=== PATIENT | male | born 1940 | race Caucasian/White ===

== ENCOUNTER 2019-10-03 14:29 | Inpatient (IN) | payer MEDICARE ==
[~2019-10-03] VITALS: Ht 180.3 cm; Wt 85.4 kg
[2019-10-03 16:35] VITALS: BP 100/50
[2019-10-03] MEDS ORDERED: BISACODYL 10 MG SUPP PR PRN (17:30)
[2019-10-03] MEDS ORDERED: morphine SULFATE 10 MG/ML, 1ML IVPush PRN (17:30)
[2019-10-03] MEDS ORDERED: ONDANSETRON 2MG/ML, 2ML IVPush PRN (17:30)
[2019-10-03] MEDS ORDERED: ACETAMINOPHEN 325 MG TABLET PO PRN (17:30)
[2019-10-03] MEDS ORDERED: DOCUSATE 100 MG CAPSULE PO PRN (17:30)
[2019-10-03] MEDS ORDERED: POLYETHYLENE GLYCOL 17 GM PACKET PO PRN (17:30)
[2019-10-03] MEDS ORDERED: NITROGLYCERIN/D5W PMX 250 ML ONE (17:39)
[2019-10-03] MEDS ORDERED: HEPARIN 25,000 UNITS/250ML PMX 250 ML ONE (17:40)
[2019-10-03] MEDS ORDERED: MORPHINE SULFATE 4 MG/ML, 1ML ONE (17:40)
[2019-10-03] MEDS ORDERED: morphine SULFATE 10 MG/ML, 1ML ONE (17:56)
[2019-10-03] MEDS ORDERED: PLEASE ENTER ALLERGIES MC SCH (18:00)
[2019-10-03] MEDS ORDERED: NITROGLYCERIN/D5W PMX 250 ML IV PRN (18:00)
[2019-10-03 18:01] LABS: BASOPHILS # (AUTO) 0.03 x10^3/uL (0-0.1); BASOPHILS % (AUTO) 0 % (0-1); EOSINOPHILS # (AUTO) 0.13 x10^3/uL (0-0.4); EOSINOPHILS % (AUTO) 1 % (1-7); LYMPHOCYTES # (AUTO) 0.72 x10^3/uL (1-3.4); LYMPHOCYTES % (AUTO) 7 % (22-44); MD NO; MEAN CORPUSCULAR HEMOGLOBIN 30.8 pg (27.5-34.5); MEAN CORPUSCULAR HGB CONC 33.8 g/dL (33.2-36.2); MEAN CORPUSCULAR VOLUME 91.1 fL (81-97); MONOCYTES # (AUTO) 0.61 x10^3/uL (0.2-0.8); MONOCYTES % (AUTO) 6 % (2-9); NEUTROPHILS # (AUTO) 8.55 x10^3/uL (1.8-6.8); NEUTROPHILS % (AUTO) 85 % (42-75); PLATELET COUNT 276 x10^3/uL (130-400); RED BLOOD COUNT 2.89 x10^6/uL (4.38-5.82); RED CELL DISTRIBUTION WIDTH 15.9 % (9.4-14.8)
[2019-10-03 18:11] LABS: INTERNATIONAL NORMALIZED RATIO 1.06 (0.93-1.1); PROTHROMBIN TIME 11.2 Seconds (9.6-11.5)
[2019-10-03 18:13] LABS: ALANINE AMINOTRANSFERASE 61 U/L (12-78); ALBUMIN 2.1 g/dL (3.4-5.0); ANION GAP 8 mmol/L (5-15); CALCIUM 8.6 mg/dL (8.5-10.1); CHLORIDE 99 mmol/L (98-107); CREATININE 0.42 mg/dL (0.7-1.3)
[2019-10-03 18:17] LABS: ALKALINE PHOSPHATASE 99 U/L (45-117); BILIRUBIN,TOTAL 0.3 mg/dL (0.2-1.0); TOTAL PROTEIN 5.7 g/dL (6.4-8.2)
[2019-10-03] MEDS ORDERED: HEPARIN 5,000 UNITS/ML, 1ML IV ONE ×2 (18:30→19:00)
[2019-10-03] MEDS ORDERED: HEPARIN 5,000 UNITS/ML, 1ML IV PRN (18:30)
[2019-10-03] MEDS ORDERED: HEPARIN 25,000 UNITS/250ML PMX 250 ML IV PRN (18:30)
[2019-10-03] MEDS ORDERED: HEPARIN 1,000 UNITS/ML, 10ML IV ONE (19:00)
[2019-10-03] MEDS: TICAGRELOR 90 MG TABLET PO SCH (21:54)
[2019-10-03] MEDS: TRAZODONE 100MG TABLET PO SCH (21:55)
[2019-10-03] MEDS: DOCUSATE 100 MG CAPSULE PO SCH (21:56)
[2019-10-03] MEDS: SODIUM CHLORIDE 0.9% 1,000 ML IV SCH (22:09)
[2019-10-04] VITALS (12 sets, daily range): BP systolic 87–99; BP diastolic 47–60
[2019-10-04] MEDS: PANTOPROZOLE 40MG TABLET PO SCH (05:23)
[2019-10-04 05:55] LABS: BASOPHILS # (AUTO) 0.04 x10^3/uL (0-0.1); BASOPHILS % (AUTO) 0 % (0-1); EOSINOPHILS # (AUTO) 0.25 x10^3/uL (0-0.4); EOSINOPHILS % (AUTO) 2 % (1-7); LYMPHOCYTES # (AUTO) 0.59 x10^3/uL (1-3.4); LYMPHOCYTES % (AUTO) 6 % (22-44); MD NO; MEAN CORPUSCULAR HEMOGLOBIN 31.1 pg (27.5-34.5); MEAN CORPUSCULAR VOLUME 91.7 fL (81-97); MEAN PLATELET VOLUME 6.8 fL (7.4-10.4); MONOCYTES # (AUTO) 0.69 x10^3/uL (0.2-0.8); MONOCYTES % (AUTO) 7 % (2-9); NEUTROPHILS # (AUTO) 8.95 x10^3/uL (1.8-6.8); NEUTROPHILS % (AUTO) 85 % (42-75); PLATELET COUNT 269 x10^3/uL (130-400); RED BLOOD COUNT 2.72 x10^6/uL (4.38-5.82); RED CELL DISTRIBUTION WIDTH 15.9 % (9.4-14.8)
[2019-10-04 06:10] LABS: ANION GAP 7 mmol/L (5-15); CALCIUM 8.4 mg/dL (8.5-10.1); CHLORIDE 100 mmol/L (98-107); TRIGLYCERIDES 66 mg/dL (50-200); VLDL CHOLESTEROL 13 mg/dL (0-25)
[2019-10-04 06:19] LABS: ALANINE AMINOTRANSFERASE 61 U/L (12-78); ALKALINE PHOSPHATASE 94 U/L (45-117); BILIRUBIN,TOTAL 0.3 mg/dL (0.2-1.0); CHOL/HDL RATIO 2.9; CHOLESTEROL, TOTAL 122 mg/dL (140-239); CREATININE 0.31 mg/dL (0.7-1.3); HDL CHOL % 34 % (26-37); HDL CHOLESTEROL (DIRECT) 42 mg/dL (40-60); LDL CHOLESTEROL,CALCULATED 67 mg/dL (54-169); TOTAL PROTEIN 5.5 g/dL (6.4-8.2)
[2019-10-04 06:20] LABS: LDL/HDL RATIO 1.6 (0.5-3.0)
[2019-10-04] MEDS ORDERED: LIDOCAINE 2%, 20ML ONE (08:34)
[2019-10-04] MEDS ORDERED: MIDAZOLAM 1 MG/ML, 5ML ONE ×2 (08:34→09:44)
[2019-10-04] MEDS ORDERED: FENTANYL PF 100 MCG/2ML ONE ×2 (08:34→09:44)
[2019-10-04] MEDS ORDERED: BIVALIRUDIN 250 MG ONE (08:34)
[2019-10-04] MEDS ORDERED: NITROGLYCERIN 5 MG/ML, 10ML ONE (08:34)
[2019-10-04] MEDS: DOCUSATE 100 MG CAPSULE PO SCH ×2 (08:37→21:13)
[2019-10-04] MEDS: ASPIRIN 81 MG TABLET EC PO SCH (08:50)
[2019-10-04] MEDS: TICAGRELOR 90 MG TABLET PO SCH ×2 (09:00→21:11)
[2019-10-04] MEDS ORDERED: TICAGRELOR 90 MG TABLET ONE (09:34)
[2019-10-04] MEDS ORDERED: PHENYLEPHRINE 10 MG/ML ONE (09:50)
[2019-10-04] MEDS ORDERED: SODIUM CHLORIDE 0.9% 1,000 ML IV SCH (10:56)
[2019-10-04] MEDS: SODIUM CHLORIDE 0.9% 1,000 ML IV SCH (11:07)
[2019-10-04 11:30] LABS: BASOPHILS # (AUTO) 0.03 x10^3/uL (0-0.1); BASOPHILS % (AUTO) 0 % (0-1); EOSINOPHILS # (AUTO) 0.15 x10^3/uL (0-0.4); EOSINOPHILS % (AUTO) 2 % (1-7); LYMPHOCYTES # (AUTO) 0.49 x10^3/uL (1-3.4); LYMPHOCYTES % (AUTO) 5 % (22-44); MD NO; MEAN CORPUSCULAR HEMOGLOBIN 30.5 pg (27.5-34.5); MEAN CORPUSCULAR HGB CONC 33.2 g/dL (33.2-36.2); MEAN CORPUSCULAR VOLUME 91.7 fL (81-97); MEAN PLATELET VOLUME 6.5 fL (7.4-10.4); MONOCYTES # (AUTO) 0.71 x10^3/uL (0.2-0.8); MONOCYTES % (AUTO) 7 % (2-9); NEUTROPHILS # (AUTO) 8.76 x10^3/uL (1.8-6.8); NEUTROPHILS % (AUTO) 86 % (42-75); PLATELET COUNT 305 x10^3/uL (130-400); RED BLOOD COUNT 2.79 x10^6/uL (4.38-5.82); RED CELL DISTRIBUTION WIDTH 16.3 % (9.4-14.8)
[2019-10-04] MEDS: CEFTRIAXONE PMX 2GM/50ML 50 ML IV SCH (11:50)
[2019-10-04 12:38] LABS: HCT (SEDRATE) 25.6 % (39.2-51.8)
[2019-10-04] MEDS ORDERED: METHOCARBAMOL 750 MG TABLET PO PRN (16:00)
[2019-10-04] MEDS: CARVEDILOL 3.125 MG TABLET PO SCH (21:00)
[2019-10-04] MEDS: ATORVASTATIN 80 MG TABLET PO SCH (21:12)
[2019-10-04] MEDS: TRAZODONE 100MG TABLET PO SCH (21:14)
[2019-10-05 04:49] VITALS: BP 89/52
[2019-10-05 05:32] LABS: BASOPHILS # (AUTO) 0.03 x10^3/uL (0-0.1); BASOPHILS % (AUTO) 0 % (0-1); EOSINOPHILS # (AUTO) 0.17 x10^3/uL (0-0.4); EOSINOPHILS % (AUTO) 2 % (1-7); LYMPHOCYTES # (AUTO) 0.69 x10^3/uL (1-3.4); LYMPHOCYTES % (AUTO) 7 % (22-44); MD NO; MEAN CORPUSCULAR HEMOGLOBIN 30.2 pg (27.5-34.5); MEAN CORPUSCULAR HGB CONC 33.1 g/dL (33.2-36.2); MEAN CORPUSCULAR VOLUME 91.2 fL (81-97); MEAN PLATELET VOLUME 6.4 fL (7.4-10.4); MONOCYTES # (AUTO) 0.72 x10^3/uL (0.2-0.8); MONOCYTES % (AUTO) 7 % (2-9); NEUTROPHILS # (AUTO) 8.49 x10^3/uL (1.8-6.8); NEUTROPHILS % (AUTO) 84 % (42-75); PLATELET COUNT 317 x10^3/uL (130-400); RED BLOOD COUNT 3.36 x10^6/uL (4.38-5.82); RED CELL DISTRIBUTION WIDTH 15.8 % (9.4-14.8)
[2019-10-05 05:41] LABS: ANION GAP 7 mmol/L (5-15); CHLORIDE 101 mmol/L (98-107)
[2019-10-05 05:43] LABS: CALCIUM 8.6 mg/dL (8.5-10.1); CREATININE 0.43 mg/dL (0.7-1.3)
[2019-10-05] MEDS: CARVEDILOL 3.125 MG TABLET PO SCH ×2 (06:00→17:35)
[2019-10-05] MEDS: PANTOPROZOLE 40MG TABLET PO SCH (06:01)
[2019-10-05] MEDS: ASPIRIN 81 MG TABLET EC PO SCH (06:02)
[2019-10-05] MEDS: DOCUSATE 100 MG CAPSULE PO SCH ×2 (08:27→20:31)
[2019-10-05] MEDS: TICAGRELOR 90 MG TABLET PO SCH ×2 (08:27→20:31)
[2019-10-05] MEDS: ACETYLCYSTEINE 600 MG CAPSULE PO SCH ×2 (08:27→20:31)
[2019-10-05] MEDS: CEFTRIAXONE PMX 2GM/50ML 50 ML IV SCH (08:30)
[2019-10-05] MEDS ORDERED: D5%-0.45NACL+KCL 20MEQ 1,000 ML IV SCH (09:30)
[2019-10-05 15:17] VITALS: BP 105/64
[2019-10-05 17:34] VITALS: BP 116/66
[2019-10-05 18:45] VITALS: BP 103/65
[2019-10-05 20:28] VITALS: BP 100/65
[2019-10-05] MEDS: ATORVASTATIN 80 MG TABLET PO SCH (20:31)
[2019-10-05] MEDS: TRAZODONE 100MG TABLET PO SCH (20:31)
[2019-10-06 01:23] VITALS: BP 93/57
[2019-10-06 05:28] LABS: CHLORIDE 103 mmol/L (98-107)
[2019-10-06 05:31] LABS: BASOPHILS # (AUTO) 0.01 x10^3/uL (0-0.1); BASOPHILS % (AUTO) 0 % (0-1); EOSINOPHILS # (AUTO) 0.22 x10^3/uL (0-0.4); EOSINOPHILS % (AUTO) 3 % (1-7); LYMPHOCYTES # (AUTO) 0.87 x10^3/uL (1-3.4); LYMPHOCYTES % (AUTO) 10 % (22-44); MD NO; MEAN CORPUSCULAR HGB CONC 33.7 g/dL (33.2-36.2); MEAN PLATELET VOLUME 6.4 fL (7.4-10.4); MONOCYTES # (AUTO) 0.72 x10^3/uL (0.2-0.8); MONOCYTES % (AUTO) 8 % (2-9); NEUTROPHILS # (AUTO) 7.04 x10^3/uL (1.8-6.8); NEUTROPHILS % (AUTO) 79 % (42-75); PLATELET COUNT 336 x10^3/uL (130-400); RED BLOOD COUNT 3.23 x10^6/uL (4.38-5.82); RED CELL DISTRIBUTION WIDTH 16.2 % (9.4-14.8)
[2019-10-06 05:32] LABS: ANION GAP 7 mmol/L (5-15); CALCIUM 8.7 mg/dL (8.5-10.1); CREATININE 0.39 mg/dL (0.7-1.3)
[2019-10-06 05:54] VITALS: BP 99/62
[2019-10-06] MEDS: CARVEDILOL 3.125 MG TABLET PO SCH ×2 (05:54→17:22)
[2019-10-06] MEDS: ASPIRIN 81 MG TABLET EC PO SCH (05:54)
[2019-10-06] MEDS: PANTOPROZOLE 40MG TABLET PO SCH (05:54)
[2019-10-06 06:40] VITALS: BP 119/68
[2019-10-06] MEDS: DOCUSATE 100 MG CAPSULE PO SCH ×2 (08:10→21:46)
[2019-10-06] MEDS: ACETYLCYSTEINE 600 MG CAPSULE PO SCH ×2 (08:10→21:46)
[2019-10-06] MEDS: TICAGRELOR 90 MG TABLET PO SCH ×2 (08:10→21:46)
[2019-10-06] MEDS ORDERED: MAGNESIUM HYDROXIDE 8%, 30ML UDC PO PRN (09:30)
[2019-10-06] MEDS ORDERED: BISACODYL 5 MG EC TABLET PO PRN (09:30)
[2019-10-06] MEDS: CEFTRIAXONE PMX 2GM/50ML 50 ML IV SCH (09:35)
[2019-10-06] MEDS: RIVAROXABAN 20 MG TABLET PO SCH (10:57)
[2019-10-06 12:30] VITALS: BP 120/74
[2019-10-06 19:45] VITALS: BP 115/68
[2019-10-06] MEDS: TRAZODONE 100MG TABLET PO SCH (21:46)
[2019-10-06] MEDS: ATORVASTATIN 80 MG TABLET PO SCH (21:46)
[2019-10-07 00:45] VITALS: BP 101/67
[2019-10-07] MEDS: PANTOPROZOLE 40MG TABLET PO SCH (05:15)
[2019-10-07] MEDS: CARVEDILOL 3.125 MG TABLET PO SCH ×2 (05:15→17:56)
[2019-10-07 05:49] LABS: BASOPHILS # (AUTO) 0.04 x10^3/uL (0-0.1); BASOPHILS % (AUTO) 0 % (0-1); EOSINOPHILS # (AUTO) 0.27 x10^3/uL (0-0.4); EOSINOPHILS % (AUTO) 3 % (1-7); LYMPHOCYTES # (AUTO) 0.85 x10^3/uL (1-3.4); LYMPHOCYTES % (AUTO) 9 % (22-44); MD NO; MEAN CORPUSCULAR HEMOGLOBIN 30.8 pg (27.5-34.5); MEAN CORPUSCULAR HGB CONC 33.8 g/dL (33.2-36.2); MEAN CORPUSCULAR VOLUME 90.9 fL (81-97); MEAN PLATELET VOLUME 6.5 fL (7.4-10.4); MONOCYTES # (AUTO) 0.77 x10^3/uL (0.2-0.8); MONOCYTES % (AUTO) 8 % (2-9); NEUTROPHILS # (AUTO) 7.21 x10^3/uL (1.8-6.8); NEUTROPHILS % (AUTO) 79 % (42-75); PLATELET COUNT 355 x10^3/uL (130-400); RED BLOOD COUNT 3.02 x10^6/uL (4.38-5.82); RED CELL DISTRIBUTION WIDTH 16.3 % (9.4-14.8)
[2019-10-07 05:52] LABS: ANION GAP 8 mmol/L (5-15); CALCIUM 8.3 mg/dL (8.5-10.1); CHLORIDE 102 mmol/L (98-107)
[2019-10-07 05:53] LABS: CREATININE 0.39 mg/dL (0.7-1.3)
[2019-10-07 07:46] VITALS: BP 111/71
[2019-10-07 08:58] VITALS: BP 97/61
[2019-10-07] MEDS: TICAGRELOR 90 MG TABLET PO SCH ×2 (09:40→20:16)
[2019-10-07] MEDS: RIVAROXABAN 20 MG TABLET PO SCH (09:41)
[2019-10-07] MEDS: DOCUSATE 100 MG CAPSULE PO SCH ×2 (09:41→20:16)
[2019-10-07] MEDS: CEFTRIAXONE PMX 2GM/50ML 50 ML IV SCH (10:20)
[2019-10-07 12:50] VITALS: BP 100/61
[2019-10-07 19:28] VITALS: BP_SYST 134; BP_SYST 96; BP_DIAS 58; BP_DIAS 79
[2019-10-07] MEDS: TRAZODONE 100MG TABLET PO SCH (20:16)
[2019-10-07] MEDS: ATORVASTATIN 80 MG TABLET PO SCH (20:17)
[2019-10-07] MEDS ORDERED: DOCUSATE 100 MG CAPSULE PO SCH (21:00)
[2019-10-08 00:33] VITALS: BP 97/57
[2019-10-08] MEDS: PANTOPROZOLE 40MG TABLET PO SCH (05:51)
[2019-10-08] MEDS: CARVEDILOL 3.125 MG TABLET PO SCH (05:51)
[2019-10-08 07:00] VITALS: BP 97/59
[2019-10-08] MEDS: DOCUSATE 100 MG CAPSULE PO SCH (08:59)
[2019-10-08] MEDS: RIVAROXABAN 20 MG TABLET PO SCH (09:00)
[2019-10-08] MEDS ORDERED: GUAIFENESIN ER 600 MG TABLET PO SCH (09:00)
[2019-10-08] MEDS: TICAGRELOR 90 MG TABLET PO SCH (09:01)
[2019-10-08] MEDS: CEFTRIAXONE PMX 2GM/50ML 50 ML IV SCH (09:08)
[2019-10-08] MEDS ORDERED: CARV3.1212 PO (10:03)
[2019-10-08] MEDS ORDERED: ATOR-2 PO (10:03)
[2019-10-08] MEDS ORDERED: METH750T2 PO (10:03)
[2019-10-08] MEDS ORDERED: PRED5TAB PO (10:03)
[2019-10-08] MEDS ORDERED: DOCU100C33 PO (10:03)
[2019-10-08] MEDS ORDERED: TICA90TA PO (10:03)
[2019-10-08] MEDS ORDERED: PANT40TA5 PO (10:03)
[2019-10-08] MEDS ORDERED: GUAI600T31 PO (10:03)
[2019-10-08] MEDS ORDERED: ACET325T26 PO (10:03)
[2019-10-08] MEDS ORDERED: RIVA20TA PO (10:03)
[2019-10-08] MEDS ORDERED: TRAZ-175 PO (10:03)
[2019-10-08] MEDS ORDERED: OXYC5TAB3 PO (11:57)
[2019-10-14] MEDS ORDERED: POLY17PO5 PO (13:26)
[2019-10-14] MEDS ORDERED: CEFT2FRO2 IV (17:22)
== END 2019-10-08 12:41 | DRG 215 ==
LOC: CCU 15:55 → 5SO 10-05 15:01
PROVIDERS: ADMIT Internal Medicine; ATTEND Hospitalist
PROC: 02703DZ Dilation of Coronary Artery, One Artery with Intraluminal Device, Percutaneous Approach (ICD-10-PCS; principal; 2019-10-04)
PROC: 30233N1 Transfusion of Nonautologous Red Blood Cells into Peripheral Vein, Percutaneous Approach (ICD-10-PCS; 2019-10-04)
PROC: B211YZZ Fluoroscopy of Multiple Coronary Arteries using Other Contrast (ICD-10-PCS; 2019-10-04)
PROC: B240ZZ3 Ultrasonography of Single Coronary Artery, Intravascular (ICD-10-PCS; 2019-10-04)
PROC: 4A023N7 Measurement of Cardiac Sampling and Pressure, Left Heart, Percutaneous Approach (ICD-10-PCS; 2019-10-04)
PROC: 02HA3RJ Insertion of Short-term External Heart Assist System into Heart, Intraoperative, Percutaneous Approach (ICD-10-PCS; 2019-10-04)
PROC: 5A0221D Assistance with Cardiac Output using Impeller Pump, Continuous (ICD-10-PCS; 2019-10-04)
DX: I21.4 Non-ST elevation (NSTEMI) myocardial infarction (principal); I50.41 Acute combined systolic (congestive) and diastolic (congestive) heart failure; I26.99 Other pulmonary embolism without acute cor pulmonale; A41.51 Sepsis due to Escherichia coli [E. coli]; J67.9 Hypersensitivity pneumonitis due to unspecified organic dust; J84.9 Interstitial pulmonary disease, unspecified; T81.41XA Infection following a procedure, superficial incisional surgical site, initial encounter; I25.119 Atherosclerotic heart disease of native coronary artery with unspecified angina pectoris; M60.9 Myositis, unspecified; I11.0 Hypertensive heart disease with heart failure; I25.5 Ischemic cardiomyopathy; D64.9 Anemia, unspecified; E55.9 Vitamin D deficiency, unspecified; E78.5 Hyperlipidemia, unspecified; K21.9 Gastro-esophageal reflux disease without esophagitis; T38.0X5A Adverse effect of glucocorticoids and synthetic analogues, initial encounter; Z66 Do not resuscitate; Z79.01 Long term (current) use of anticoagulants; Z79.52 Long term (current) use of systemic steroids; Z80.0 Family history of malignant neoplasm of digestive organs; Z88.8 Allergy status to other drugs, medicaments and biological substances; Z80.6 Family history of leukemia; Z86.718 Personal history of other venous thrombosis and embolism; Z87.891 Personal history of nicotine dependence
CPT/HCPCS: 33990; 36415; 71045; 71260; 80048; 80053; 80061; 82550; 83735; 84100; 84443; 84484; 85014; 85018; 85025; 85347; 85520; 85610; 85651; 85730; 86140; 86850; 86900; 86923; 87081; 92928; 92978; 93005; 93306; 93454; 99156; 99157; C1753; C1760; C1769; C1876; C1894; G0378; J0583; J0696; J1644; J2250; J3010; C1725; C1887; J2270; J2370; J3480; J7030; J7512; P9016; Q9967